=== PATIENT | male | born 1990 | race African-American/Black ===

== ENCOUNTER 2019-01-21 16:43 | Emergency (ER) | payer BC, MEDICAID ==
[~2019-01-21] VITALS: Ht 188 cm; Wt 108.1 kg
[2019-01-21] MEDS ORDERED: ACETAMINOPHEN 325MG TABLET PO ONE (19:15)
[2019-01-21 21:41] VITALS: BP 145/102
== END 2019-01-21 21:42 | disposition home or self-care (01) ==
LOC: ER 17:39
DX: M79.671 Pain in right foot (principal); Z88.6 Allergy status to analgesic agent
CPT/HCPCS: 29515; 73630; 99283; Z7610

== ENCOUNTER 2021-10-20 00:35 | Emergency (ER) | payer MEDICAID ==
[~2021-10-20] VITALS: Ht 185.4 cm; Wt 110.2 kg
[2021-10-20 00:51] VITALS: BP 123/93
[2021-10-20] MEDS ORDERED: ACETAMINOPHEN 325MG TABLET PO ONE (01:45)
== END 2021-10-20 03:25 | disposition home or self-care (01) ==
LOC: ER 00:35
DX: M79.644 Pain in right finger(s) (principal)
CPT/HCPCS: 29130; 73130; 99283